=== PATIENT | male | born 1995 | race African-American/Black ===

== ENCOUNTER 2016-07-14 20:43 | Emergency (ER) | payer OTHER ==
[~2016-07-14] VITALS: Ht 177.8 cm; Wt 104.3 kg
[2016-07-14 20:46] VITALS: BP 143/93
[2016-07-14] MEDS ORDERED: MOBIC15 MG PO (21:53)
[2016-07-14] MEDS ORDERED: LEVAQUIN 500 M500 M2 PO (21:53)
== END 2016-07-14 21:59 | disposition home or self-care (01) ==
LOC: ER 20:43
DX: S91.332A Puncture wound without foreign body, left foot, initial encounter (principal); W11.XXXA Fall on and from ladder, initial encounter; Y93.89 Activity, other specified; Y92.89 Other specified places as the place of occurrence of the external cause; Y99.9 Unspecified external cause status